=== PATIENT | male | born 1975 | race Caucasian/White ===

== ENCOUNTER 2020-01-18 22:22 | Emergency (ER) | payer OTHER ==
[~2020-01-18] VITALS: Ht 177.8 cm; Wt 88.5 kg
[2020-01-18 22:35] VITALS: BP 131/89
--- NOTE | 2020-01-18 22:35 | NUR ---
ED Nurse Note: Patient walked in to ED c/o upper abdominal pain x few months. As per patient he used to take Suboxone x1 year and he is trying to take himself off Suboxone for the past few weeks by taking Ketamine. Pt also reports nausea and diarrhea. Per pt, he was seen at the urgent care and was told to go to the ER for liver eval. Not in any distress. VSS.
--- NOTE | 2020-01-18 22:51 | NUR ---
ED Nurse Note: IV line established. Blood and urine specimen collected and sent to lab.
--- NOTE | 2020-01-18 22:55 | Emergency Room Report ---
History of Present Illness General Chief Complaint: Abdominal Pain Source: Patient Present Illness HPI Disclaimer: Please note that this report is being documented using [employer] technology. This can lead to erroneous entry secondary to incorrect interpretation by the dictating instrument. HPI: 44-year-old male presents for evaluation of abdominal pain. He has a history of opiate abuse but has been on Suboxone for 1 year. He is been trying to take himself off Suboxone over the past week by taking ketamine that he obtains from the street. He continues to take Suboxone. He has been complaining of upper abdominal and epigastric cramping and nausea. He also reports nonbloody diarrhea. Denies vomiting, fever, chills, chest pain, shortness of breath, cough, URI symptoms. Denies dysuria, hematuria pain in the lower abdomen or back. No exacerbating relieving symptoms. He is taking Pepcid for GERD. 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 Symptoms were present prior to starting antibiotics. PMH: Opiate abuse PSH: Denies Allergies: Denies Social Hx: Former opiate abuse currently on Suboxone, current tobacco use, denies alcohol use Allergies: Coded Allergies: No Known Allergies (Unverified , 01/18/20) Review of Systems All Other Systems: negative except mentioned in HPI Physical Exam Vital Signs Date Time Temp Pulse Resp B/P (MAP) Pulse Ox O2 Delivery O2 Flow Rate FiO2 01/18/20 22:26 98.2 76 16 131/89 (103) 95 Room Air General: Awake and alert, no acute distress HEENT: NC/AT. EOMI. Neck: Supple, trachea midline Chest Wall: No tenderness, no deformity Cardiovascular: RRR. S1 and S2 normal. No murmur appreciated Resp: Normal work of breathing. No cough, wheezing or crackles appreciated Abdomen: Abdomen is soft, nondistended. Tender palpation in the epigastrium and left upper quadrant. No significant in his right upper quadrant negative Craig's. No mass appreciated. Lower abdomen is nontender, no masses. Skin: There is a 4 cm circular region of erythema and mild edema over the right side of the mid back nontender to palpation and nonfluctuant. MSK: Normal tone and bulk. Moving all extremities. No obvious deformity. Neuro: Awake and alert. Mentating appropriately. Procedures Ultrasound Ultrasound : Consent: Verbal Ultrasound: normal Patient Tolerated: Well Complications: None Progress Ultrasound of the right upper quadrant. Normal-appearing gallbladder. Gallbladder thickness 3 mm. CBD diameter 5 mm. No pericholecystic fluid. No gallstones or sludge appreciated. No free fluid identified in the right upper quadrant. Overall unremarkable exam. Medical Decision Making Diagnostic Impression: Primary Impression: Diarrhea Additional Impression: Elevated LFTs ER Course 44-year-old male history of opiate abuse presents for evaluation of pain and diarrhea. Symptoms for 1 week. Differential includes was not limited to withdrawal symptoms, ketamine side effect, pancreatitis, cholecystitis, gastritis, gastroenteritis, viral syndrome. He is overall well-appearing stable vital signs. Abdomen is somewhat tender. Will obtain labs to evaluate for pancreatitis and cholecystitis though at this time of low clinical suspicion. Will give IV fluids, antiemetics and antacids. Laboratory Tests Test 01/18/20 22:55 White Blood Count 9.2 K/UL (4.8-10.8) Red Blood Count 4.79 M/UL (4.70-6.10) Hemoglobin 14.6 G/DL (14.2-18.0) Hematocrit 43.1 % (42.0-52.0) Mean Corpuscular Volume 90 FL (80-99) Mean Corpuscular Hemoglobin 30.4 PG (27.0-31.0) Mean Corpuscular Hemoglobin Concent 33.8 G/DL (32.0-36.0) Red Cell Distribution Width 11.9 % (11.6-14.8) Platelet Count 305 K/UL (150-450) Mean Platelet Volume 7.9 FL (6.5-10.1) Neutrophils (%) (Auto) 73.8 % (45.0-75.0) Lymphocytes (%) (Auto) 14.5 % (20.0-45.0) L Monocytes (%) (Auto) 6.9 % (1.0-10.0) Eosinophils (%) (Auto) 3.7 % (0.0-3.0) H Basophils (%) (Auto) 1.0 % (0.0-2.0) Urine Color Yellow Urine Appearance Clear Urine pH 6 (4.5-8.0) Urine Specific Birney 1.020 (1.005-1.035) Urine Protein 2+ (NEGATIVE) H Urine Glucose (UA) Negative (NEGATIVE) Urine Ketones 1+ (NEGATIVE) H Urine Blood Negative (NEGATIVE) Urine Nitrite Negative (NEGATIVE) Urine Bilirubin Negative (NEGATIVE) Urine Urobilinogen 1 MG/DL (0.0-1.0) H Urine Leukocyte Esterase 1+ (NEGATIVE) H Urine RBC 0-2 /HPF (0 - 0) H Urine WBC 2-4 /HPF (0 - 0) Urine Squamous Epithelial Cells None /LPF (NONE/OCC) Urine Bacteria Few /HPF (NONE) Sodium Level 139 MMOL/L (136-145) Potassium Level 4.1 MMOL/L (3.5-5.1) Chloride Level 101 MMOL/L (98-107) Carbon Dioxide Level 29 MMOL/L (21-32) Anion Gap 9 mmol/L (5-15) Blood Urea Nitrogen 12 mg/dL (7-18) Creatinine 0.9 MG/DL (0.55-1.30) Estimate Glomerular Filtration Rate > 60 mL/min (>60) Glucose Level 108 MG/DL (74-106) H Calcium Level 9.4 MG/DL (8.5-10.1) Total Bilirubin 0.5 MG/DL (0.2-1.0) Aspartate Amino Transferase (AST) 67 U/L (15-37) H Alanine Aminotransferase (ALT) 136 U/L (12-78) H Alkaline Phosphatase 208 U/L (46-116) H Total Protein 7.5 G/DL (6.4-8.2) Albumin 3.9 G/DL (3.4-5.0) Globulin 3.6 g/dL Albumin/Globulin Ratio 1.1 (1.0-2.7) Lipase 100 U/L (73-393) Reevaluation Time: 00:15 Last Vital Signs Date Time Temp Pulse Resp B/P (MAP) Pulse Ox O2 Delivery O2 Flow Rate FiO2 01/18/20 22:26 98.2 76 16 131/89 (103) 95 Room Air Reevaluation Impression Labs show a slight elevation in LFTs and alk phos. Bedside ultrasound unremarkable. No gallbladder wall thickening, no pericholecystic fluid, no gallstones or biliary sludge identified. Patient is feeling well after receiving IV fluids antacids and antiemetics. Will prescribe loperamide for his diarrhea. Strongly advised him to no longer use ketamine but to continue Suboxone. He will follow-up with his counselor. Additional resources provided in his discharge paperwork. Will provide loperamide. Discussed reasons to return to the emergency department need to follow-up for his LFTs. He understands and agrees with the treatment plan. Disposition: HOME, SELF-CARE Condition: Stable Scripts Loperamide HCl (Loperamide) 2 Mg Capsule 2 MG ORAL Q4H, #20 CAP 0 Refills Prov: Reece Metz MD 01/19/20 Reece Metz MD Jan 18, 2020 22:55
[2020-01-18 23:07] LABS: APPEARANCE,URINE CLEAR; BILIRUBIN, URINE NEGATIVE (NEGATIVE); EOSINOPHILS % (AUTO) 3.7 % (0.0-3.0); GLUCOSE, URINE (UA) NEGATIVE (NEGATIVE); HEMATOCRIT 43.1 % (42.0-52.0); HEMOGLOBIN 14.6 G/DL (14.2-18.0); KETONES,URINE 1+ (NEGATIVE); LEUKOCYTE ESTERASE ,URINE 1+ (NEGATIVE); LYMPHOCYTES % (AUTO) 14.5 % (20.0-45.0); MEAN CORPUSCULAR VOLUME 90 FL (80-99); MONOCYTES % (AUTO) 6.9 % (1.0-10.0); NEUTROPHILS % (AUTO) 73.8 % (45.0-75.0); NITRITE,URINE NEGATIVE (NEGATIVE); PH,URINE 6 (4.5-8.0); PLATELET COUNT 305 K/UL (150-450); PROTEIN,URINE 2+ (NEGATIVE); RED BLOOD COUNT 4.79 M/UL (4.70-6.10); RED CELL DISTRIBUTION WIDTH 11.9 % (11.6-14.8); UROBILINOGEN,URINE 1 MG/DL (0.0-1.0); WHITE BLOOD COUNT 9.2 K/UL (4.8-10.8)
[2020-01-18 23:10] LABS: COLOR,URINE YELLOW
[2020-01-18 23:17] LABS: ANION GAP 9 mmol/L (5-15); BLOOD UREA NITROGEN 12 mg/dL (7-18); CALCIUM 9.4 MG/DL (8.5-10.1); CARBON DIOXIDE 29 MMOL/L (21-32); CHLORIDE 101 MMOL/L (98-107); CREATININE 0.9 MG/DL (0.55-1.30); POTASSIUM 4.1 MMOL/L (3.5-5.1); SODIUM 139 MMOL/L (136-145)
[2020-01-18 23:22] LABS: ALANINE AMINOTRANSFERASE 136 U/L (12-78); ALBUMIN 3.9 G/DL (3.4-5.0); ALBUMIN/GLOBULIN RATIO 1.1 (1.0-2.7); ALKALINE PHOSPHATASE 208 U/L (46-116); ASPARTATE AMINO TRANSFERASE 67 U/L (15-37); BILIRUBIN,TOTAL 0.5 MG/DL (0.2-1.0)
[2020-01-19] MEDS ORDERED: IMODIUM2 MG ORAL (00:11)
[2020-01-19 00:16] VITALS: BP 131/89
--- NOTE | 2020-01-19 00:16 | NUR ---
ED Nurse Note: Pt cleared by ERMD for discharge. DC instructions/prescription was given and explained to pt and verbalized understanding of teachings. All medical deviecs such as ID band and IV line removed. Pt is AAO x4, ambulatory and left with all personal belongings. Pt will take an uber going home.
== END 2020-01-19 00:16 | disposition home or self-care (01) ==
LOC: EMR 22:45
DX: R19.7 Diarrhea, unspecified (principal); R94.5 Abnormal results of liver function studies; K21.9 Gastro-esophageal reflux disease without esophagitis
CPT/HCPCS: 36415; 80053; 81003; 83690; 85025; 96361; 96374; 96375; 99284; J2405; J7030; S0028